=== PATIENT | female | born 1950 | race Caucasian/White ===

== ENCOUNTER 2020-07-08 05:41 | Emergency (ER) | payer MEDICAID ==
[~2020-07-08] VITALS: Ht 149.9 cm; Wt 77.1 kg
--- NOTE | 2020-07-08 05:45 | NUR ---
PT AAOX3, BIBRA 839 FROM HOME FOR C/O DIZZINESS AND HIGH BP. 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 SKIN WARM AND INTACT, RR EVEN AND UNLABORED. VSS. NO ACUTE DISTRESS NOTED. AWAITING MD FOR EVAL.
--- NOTE | 2020-07-08 06:24 | NUR ---
TECH AT BEDSIDE FOR EKG
[2020-07-08] MEDS ORDERED: MECLIZINE HCL 25 MG TABLET ONE (06:35)
[2020-07-08] MEDS ORDERED: ONDANSETRON HCL/PF 4 MG/2 ML VIAL ONE (06:35)
[2020-07-08 06:38] LABS: BASOPHILS % (AUTO) 0.3 % (0.0-2.0); EOSINOPHILS % (AUTO) 1.3 % (0.0-6.0); HEMATOCRIT 41 % (33-45); HEMOGLOBIN 13.5 g/dL (11.5-14.8); LYMPHOCYTES # (AUTO) 1.7 /CMM (0.8-4.8); LYMPHOCYTES % (AUTO) 29.8 % (20.0-44.0); MEAN CORPUSCULAR HGB CONC 33 g/dl (31.0-36.0); MEAN CORPUSCULAR VOLUME 92 fL (82-100); MONOCYTES # (AUTO) 0.4 /CMM (0.1-1.30); MONOCYTES % (AUTO) 7.5 % (2.0-12.0); NEUTROPHILS # (AUTO) 3.4 /CMM (1.8-8.9); NEUTROPHILS % (AUTO) 61.1 % (43.0-81.0); PLATELET COUNT (AUTO) 233 /CMM (150-450); RED BLOOD CELL COUNT(AUTO) 4.44 MIL/uL (4.0-5.2); WHITE BLOOD COUNT (AUTO) 5.6 K/uL (4.3-11.0)
[2020-07-08 06:50] LABS: ALANINE AMINOTRANSFERASE 33 U/L (12-78); ALBUMIN 3.9 g/dL (3.4-5.0); ALKALINE PHOSPHATASE 109 U/L (46-116); ASPARTATE AMINOTRANSFERASE 23 U/L (15-37); BILIRUBIN,DIRECT 0.1 mg/dL (0.0-0.2); BILIRUBIN,TOTAL 0.5 mg/dL (0.2-1.0); CALCIUM, SERUM 9.3 mg/dL (8.5-10.1); CARBON DIOXIDE 29 mmol/L (21-32); CHLORIDE 104 mmol/L (98-107); CREATININE 0.8 mg/dL (0.6-1.3); GLUCOSE 157 mg/dL (74-106); POTASSIUM 3.5 mmol/L (3.5-5.1); SODIUM SERUM 141 mmol/L (136-145); TOTAL PROTEIN, SERUM 8.5 g/dL (6.4-8.2); UREA NITROGEN, BLOOD 18 mg/dL (7-18)
[2020-07-08] MEDS ORDERED: ONDANSETRON 4 MG TAB.RAPDIS PO ONE (07:00)
[2020-07-08] MEDS ORDERED: MECLIZINE HCL 12.5 MG TABLET PO ONE (07:00)
--- NOTE | 2020-07-08 07:08 | NUR ---
Patient is resting comfortably in bed with eyes closed. Easily aroused. VSS
--- NOTE | 2020-07-08 07:59 | NUR ---
IV removed. Catheter intact and site benign. Pressure and 4x4 applied to site. No bleeding noted.Patient discharged to home in stable condition. Written and verbal after care instructions given. Patient verbalizes understanding of instruction.
[2020-07-08 08:00] VITALS: BP 127/68
== END 2020-07-08 08:04 | disposition home or self-care (01) ==
LOC: ER 05:44
DX: R42 Dizziness and giddiness (principal); H55.00 Unspecified nystagmus; I10 Essential (primary) hypertension; Z98.890 Other specified postprocedural states
CPT/HCPCS: 36415; 71045; 80048; 80076; 84484; 85025; 93005; 96374; 99285; J2405; J8597